=== PATIENT | male | born 2000 | race Caucasian/White ===

== ENCOUNTER 2020-06-26 11:37 | Emergency (ER) | payer SELFPAY ==
[2020-06-26 11:45] VITALS: BP 178/111; PULSE 118; RESP 18; TEMP 37.2; O2SAT 98; BMI 31.6
--- NOTE | 2020-06-26 11:56 | W.ED.PSYCH ---
HPI - Psych General: Chief Complaint: Psychiatric Symptoms Stated Complaint: SI Time Seen by Provider: 06/26/20 11:45 History of Present Illness: HPI Narrative: 20-year-old male presents to the emergency room via EMS he cut himself on the left forearm he is done this multiple times in the past he been in an argument with his mother and was angry was trying to express his anger is yet several scars on the arm he does have a small amount of bleeding is a partial thickness cut it stop bleeding now he denies any intent to actually kill himself he denies any homicidal ideation he does state he frequently gets suicidal ideation but he deals with it by diverting his attention going for a walk using other strategies to calm down or slow his thinking. He states this is a chronic thing and he has had it for years and he has managed it with his diversion techniques. He states he is not having any suicidal ideation now.. He states he has a family history of bipolar disorder. MD complaint: other (Patient cut himself in anger.) Onset (ago): minute(s) Duration: intermittent and resolved prior to arrival Relieving factors: other (Cutting) Context: significant life stressor Associated psychiatric symptoms: depression Associated symptoms: Reports depression; Deny auditory hallucinations, visual hallucinations, delusions, homicidal ideation, suicidal ideation or racing thoughts Treatments prior to arrival: none Review of Systems Const: Denies: fever(s), chills, body aches, change in appetite, fatigue or malaise ENMT: Denies: throat pain, ear or mastoid pain, nasal discharge or nasal congestion Card: Denies: chest pain, edema, dyspnea on exertion or orthopnea Resp: Denies: dyspnea, productive cough or non-productive cough GI: Denies: abdominal pain, nausea, vomiting, hematemesis, coffee ground emesis, diarrhea, constipation, bloating, hematochezia or melena : Denies: flank pain, dysuria, urinary frequency or urinary urgency Skin/Breast: Denies: rash or pruritus Psych: Reports: depression; Denies: visual hallucinations, auditory hallucinations, suicidal ideation or homicidal ideation [facility] PFSH: Medical History (Updated 06/26/20 @ 14:19 by Carlos Hurd DO) No significant past medical history Surgical History (Updated 06/26/20 @ 12:00 by Carlos Hurd DO) No history of previous surgery Physical Exam Const: COMMON NORMALS: no acute distress GENERAL APPEARANCE: cooperative and comfortable ORIENTATION/CONSCIOUSNESS: Yes awake, Yes oriented to person, Yes oriented to place and Yes oriented to time HENMT: COMMON NORMALS: normocephalic, atraumatic and hearing grossly normal bilaterally HEAD & SCALP: normocephalic and atraumatic Neck/C-Spine: COMMON NORMALS: no JVD Resp: COMMON NORMALS: normal respiratory effort, No retractions, No use of accessory muscles and clear to auscultation bilaterally AUSCULTATION: clear to auscultation bilaterally Cardio: COMMON NORMALS: no JVD, regular rate, regular rhythm and No murmurs present (Cardio) RATE: regular rate RHYTHM: regular rhythm GI: COMMON NORMALS: Soft to palpation and No hepatosplenomegaly present AUSCULTATION: Yes normoactive bowel sounds PALPATION: Yes Soft to palpation, No Tenderness to palpation present (GI), No Guarding due to palpation present (GI) and Yes No hepatosplenomegaly present Extremity: NARRATIVE EXTREMITY EXAM: Multiple cuts with significant variation in healing with hypertrophy of scars distally. There is a partial-thickness cut that he is bandaged and does not actively bleeding. Neuro: SENSORIUM/ORIENTATION: Yes oriented to person, Yes oriented to place and Yes oriented to time Psych: THOUGHT CONTENT: No delusions MDM - Psych MDM Narrative: Medical decision making narrative: Labs back. Patient is mildly anemic otherwise he has no significant abnormalities I discussed with Dr. Juárez he will come and see the patient emergency room he did tell 1 of the nurses evidently was trying to harm himself and again to clarify its that he was trying to cut himself to let out express anger but not try to kill himself he does state he frequently has suicidal thoughts but deals with them by distracting himself with other things and work successfully says it about 3 times a week. I talked to Dr. Juárez he is going to come and see the patient evaluating for himself. Lab Data: Labs: Lab Results 06/26/20 06/26/20 06/26/20 Range/Units 11:49 11:49 12:09 WBC 7.8 (4.0-10.0) 10^3/ uL RBC 4.06 L (4.1-5.3) 10^6/u L Hgb 10.9 L (11.7-16.6) g/dL Hct 34.3 L (42.0-52.0) % MCV 84.5 (80-94) fL MCH 26.8 L (28.0-34.0) pg MCHC 31.8 (30.0-36.0) g/dL RDW 12.4 (12.1-15.1) % Plt Count 347 (130-400) 10^3/c mm MPV 9.0 (7.4-10.4) fL Neut % (Auto) 51.5 % Lymph % (Auto) 36.2 % [place] % (Auto) 9.1 % Eos % (Auto) 1.2 % Baso % (Auto) 1.0 % Neut # (Auto) 4.03 (1.8-7.7) 10^3/u L Lymph # (Auto) 2.8 (0.8-4.8) 10^3/u L [place] # (Auto) 0.7 (0.2-0.9) 10^3/u L Eos # (Auto) 0.1 (0.0-0.8) 10^3/u L Baso # (Auto) 0.1 (0.0-0.1) 10^3/u L Nucleated RBC % (a uto) 0 % Nucleated RBCs # 0.0 /100WBC Sodium (136-145) mmol/L Potassium (3.5-5.1) mmol/L Chloride (98-107) mmol/L Carbon Dioxide (22-29) mmol/L Anion Gap (5-19) BUN (6-20) mg/dL Creatinine (0.7-1.2) mg/dL GFR Calculation (90-130) mL/min Glucose (65-115) mg/dL Calculated Osmolal ity (285-295) mOsm/k g Calcium (8.5-10.5) mg/dL Urine Color Yellow (Yellow) Urine Appearance Clear (CLEAR) Urine pH 5 (5-7) Ur Specific Gravit y 1.020 (1.005-1.030) Urine Protein Trace (Negative) Urine Glucose (UA) Norm (Normal) Urine Ketones Negative (Negative) Urine Blood Neg (Negative) Urine Nitrate Negative (Negative) Urine Bilirubin Neg (NEGATIVE) Urine Urobilinogen Neg (Negative) mg/dL Ur Leukocyte Nicky ase Negative (Negative) Urine RBC None (0-2) /hpf Urine WBC None (0-5) /hpf Ur Squamous Epith Cells None (0-5) Amorphous Sediment Not Reportable Urine Bacteria Trace (NONE) Hyaline Casts 0-4 H Urine Mucus 1+ Salicylates (3-10) mg/dL Urine Opiates Scre en Negative (Negative) ng/mL Acetaminophen (10-30) ug/mL Ur Barbiturates Sc reen Negative (Negative) ng/mL Ur Phencyclidine S crn Negative (Negative) ng/mL Ur Amphetamines Sc reen Negative (Negative) ng/mL U Benzodiazepines Scrn Negative (Negative) ng/mL Urine Cocaine Scre en Negative (Negative) ng/mL U Marijuana (THC) Screen Negative (Negative) ng/mL 06/26/20 Range/Units 12:09 WBC (4.0-10.0) 10^3/ uL RBC (4.1-5.3) 10^6/u L Hgb (11.7-16.6) g/dL Hct (42.0-52.0) % MCV (80-94) fL MCH (28.0-34.0) pg MCHC (30.0-36.0) g/dL RDW (12.1-15.1) % Plt Count (130-400) 10^3/c mm MPV (7.4-10.4) fL Neut % (Auto) % Lymph % (Auto) % [place] % (Auto) % Eos % (Auto) % Baso % (Auto) % Neut # (Auto) (1.8-7.7) 10^3/u L Lymph # (Auto) (0.8-4.8) 10^3/u L [place] # (Auto) (0.2-0.9) 10^3/u L Eos # (Auto) (0.0-0.8) 10^3/u L Baso # (Auto) (0.0-0.1) 10^3/u L Nucleated RBC % (a uto) % Nucleated RBCs # /100WBC Sodium 134 L (136-145) mmol/L Potassium 3.9 (3.5-5.1) mmol/L Chloride 102 (98-107) mmol/L Carbon Dioxide 23 (22-29) mmol/L Anion Gap 12.9 (5-19) BUN 14 (6-20) mg/dL Creatinine 1.1 (0.7-1.2) mg/dL GFR Calculation 84.5 L (90-130) mL/min Glucose 130 H (65-115) mg/dL Calculated Osmolal ity 276 L (285-295) mOsm/k g Calcium 9.4 (8.5-10.5) mg/dL Urine Color (Yellow) Urine Appearance (CLEAR) Urine pH (5-7) Ur Specific Gravit y (1.005-1.030) Urine Protein (Negative) Urine Glucose (UA) (Normal) Urine Ketones (Negative) Urine Blood (Negative) Urine Nitrate (Negative) Urine Bilirubin (NEGATIVE) Urine Urobilinogen (Negative) mg/dL Ur Leukocyte Nicky ase (Negative) Urine RBC (0-2) /hpf Urine WBC (0-5) /hpf Ur Squamous Epith Cells (0-5) Amorphous Sediment Urine Bacteria (NONE) Hyaline Casts Urine Mucus Salicylates < 0.3 L (3-10) mg/dL Urine Opiates Scre en (Negative) ng/mL Acetaminophen < 5.0 L (10-30) ug/mL Ur Barbiturates Sc reen (Negative) ng/mL Ur Phencyclidine S crn (Negative) ng/mL Ur Amphetamines Sc reen (Negative) ng/mL U Benzodiazepines Scrn (Negative) ng/mL Urine Cocaine Scre en (Negative) ng/mL U Marijuana (THC) Screen (Negative) ng/mL Discharge Plan Discharge Patient Disposition: Home Clinical Impression: Bipolar disorder, Deliberate self-cutting Condition: Stable Prescriptions: New mupirocin 2 % ointment 1 applic TOPICAL BID Qty: 22 RF: 0 No Action Tylenol 325 mg Tablet 650 - 1,300 mg PO PRN RF: 0 Discharge Orders: Discharge Order (Routine); Ordered 06/26/20 Ordered By: Carlos Hurd Referrals: BE[facility]AVIORAL HEALTH PROVIDERS, [Staff Physician] - Discharge Diet: Usual diet Discharge Activity: Resume usual activity Activity Restrictions/Additional Instructions: Follow-up with behavioral health case management will assist you in making referral. Discharge Date/Time: 06/26/20 14:34 Coding Level of Care Code ED Account Executive [employer] for Chg Fwd Exam Detailed
--- NOTE | 2020-06-26 12:06 | PC.NURSE ---
Physician Vickey cleared patient of needing 1:1 sitter at this time due to assessment/interview
[2020-06-26 12:14] LABS: Basophils # 0.1 10^3/uL (0.0-0.1); Eosinophils # 0.1 10^3/uL (0.0-0.8); Eosinophils % 1.2 %; Hematocrit 34.3 % (42.0-52.0); Hemoglobin 10.9 g/dL (11.7-16.6); Lymphocytes # 2.8 10^3/uL (0.8-4.8); Lymphocytes % 36.2 %; Mean Corpuscular HGB Conc 31.8 g/dL (30.0-36.0); Mean Corpuscular Hemoglobin 26.8 pg (28.0-34.0); Mean Corpuscular Volume 84.5 fL (80-94); Monocytes # 0.7 10^3/uL (0.2-0.9); Monocytes % 9.1 %; Neutrophils # 4.03 10^3/uL (1.8-7.7); Neutrophils % 51.5 %; Nucleated Red Blood Cells % 0 %; Platelet Count 347 10^3/cmm (130-400); Red Blood Count 4.06 10^6/uL (4.1-5.3); Red Cell Distribution Width 12.4 % (12.1-15.1); White Blood Count 7.8 10^3/uL (4.0-10.0)
[2020-06-26 12:44] LABS: Amphetamines Screen Urine Negative (Negative); Barbiturates Screen Urine Negative (Negative); Benzodiazepines Screen Urine Negative (Negative); Cocaine Screen Urine Negative (Negative); Opiate Screen Urine Negative (Negative); PCP Screen Urine Negative (Negative); THC Screen Urine Negative (Negative)
[2020-06-26 12:45] LABS: Anion Gap 12.9 (5-19); Blood Urea Nitrogen 14 mg/dL (6-20); Calcium 9.4 mg/dL (8.5-10.5); Carbon Dioxide 23 mmol/L (22-29); Chloride 102 mmol/L (98-107); Glomerular Filtration Rate 84.5 mL/min (90-130); Glucose 130 mg/dL (65-115); Osmolality Calculated 276 mOsm/kg (285-295); Potassium 3.9 mmol/L (3.5-5.1); Sodium 134 mmol/L (136-145)
[2020-06-26 12:45] LABS: Add Urine Microscopic? YES; Bilirubin Urine Neg (NEGATIVE); Blood Urine Neg (Negative); Glucose Urine UA Norm (Normal); Ketones Urine Negative (Negative); Leukocyte Esterase Urine Negative (Negative); Nitrate Urine Negative (Negative); Protein Urine Trace (Negative); Urine Appearance Clear (CLEAR); Urine Color Yellow (Yellow); Urobilinogen Urine Neg (Negative); pH Urine 5 (5-7)
[2020-06-26 12:50] LABS: Add Urine Culture? No; Bacteria Urine TRACE; Hyaline Casts Urine 0-4; Mucus Urine 1+
[2020-06-26 12:52] LABS: Acetaminophen < 5.0 ug/mL (10-30); Salicylate < 0.3 mg/dL (3-10)
[2020-06-26 13:42] VITALS: RESP 18
--- NOTE | 2020-06-26 13:53 | PC.NURSE ---
Dr Juárez at bedside with patient at 1352
--- NOTE | 2020-06-26 14:42 | DCPLANNER ---
it operations manager was asked to speak with patient about services at [facility]. it operations manager called [facility] to confirm if patient was a patient at the clinic. it operations manager was told that patient has not been seen at the clinic, will have to fill out new patient paperwork, turn in it, then patient would be called with an appointment for the initial assessment, and that would be completed over the phone. it operations manager spoke with patient, he stated that he would take the paper work fill it out and turn it in. it operations manager offered to help patient fill out the initial paperwork and turn it in for him. Patient stated that he would fill it out and turn it in.
--- NOTE | 2020-06-26 15:07 | P.CONIM_ITS ---
Providers/Reason for Consult Consulting Physican/Specialty*: Franck Juárez M.D./Psychiatry Reason for Consult*: Self cutting. Requesting Physcian: Carlos Hurd Psych Consult HPI History of Present Illness Yogesh Reynolds is a 20 year old male who has a protracted history of dealing with anger by cutting, which is a well-known method of coping among young people. He is fairly well read and says that he understands that dopamine and endorphin release follows cutting. He says he has no suicidal or homicidal ideation, plan or intent. He has no history of suicide gesture or attempt. He occasionally thinks about suicide, as young people often do. He has trouble coping with conflict and when he gets angry he wants to cut. He has been doing it for years. I told him that does not mean is okay and he should get involved with meaningful therapy. He said he did not have any money or a job and I pointed out that [facility] has a budget for such people as well as walk-in intake hours 5 days a week. He said he would be interested in that. Review of Systems Narrative: Const: Denies: fever(s), chills or body aches Eyes: Denies: change in vision or blurry vision ENMT: Denies: throat pain, enlarged tonsils, odynophagia, hoarseness, mouth pain or swelling of lips/tongue Card: Denies: palpitations, irregular heart rhythm, edema or swelling of feet/ankles Resp: Denies: dyspnea, productive cough or non-productive cough GI: Denies: abdominal pain, nausea or vomiting : Denies: flank pain, difficulty voiding, dysuria, urinary frequency, urinary urgency or urinary hesitancy Musc: Denies: neck pain, back pain or extremity swelling Skin/Breast: Denies: rash, pruritus or erythema Neuro: Denies: headache(s), numbness in extremities or weakness in extremities Psych: Reports: anxiety and depression Endo: Denies: polyuria, polydipsia or tired all the time PFSH NPU PFSH: Medical History (Updated 07/04/20 @ 00:00 by ) No significant past medical history Surgical History (Updated 06/26/20 @ 12:00 by Carlos Hurd DO) No history of previous surgery Mental Status Exam MSE Comments: This is a 20-year-old male who presents had a stated age clean, neat and well organized. Mood is calm and affect is appropriate. Thought processes are integrated and free of any racing, blocking or looseness of association. There is no evidence of psychosis, such as but not limited to hallucinations, delusions or ideas of reference. Cognitive functions are quite intact. He is well read. The patient affirmatively denied homicidal or suicidal ideation, plan or intent. I told him we are relying upon his truthfulness and he affirms that he is not lying. Insight and judgment are quite adequate. Vitals/I&O/Wt Last Vital Signs Temp 98.9 F 06/26/20 11:45 Pulse 118 H 06/26/20 11:45 Resp 18 06/26/20 13:42 BP 178/111 06/26/20 11:45 Pulse Ox 98 06/26/20 11:45 Weight last 48 hrs Weight 240 lb Physical Exam Narrative: EXAM NARRATIVE: Const: COMMON NORMALS: no acute distress, patient oriented x3, no limitations, healthy appearing and well nourished GENERAL APPEARANCE: cooperative and well developed HENMT: COMMON NORMALS: normocephalic, atraumatic, external ears normal, EAC's normal and Normal external nose present HEAD & SCALP: normal to inspection, normocephalic and atraumatic FACE & SINUS: normal facial exam and face symmetric NOSE: Normal external nose present and Normal nares present EXTERNAL EAR: Yes external ears normal EXTERNAL AUDITORY CANAL: EAC's normal MOUTH: Normal oral and palatal mucosa present, lip normal and tongue normal Eye: COMMON NORMALS: Equal, round and reactive pupils present and conjunctivae normal GENERAL EYE: appearance normal, both eyes and all related structures ALIGNMENT: Yes alignment normal PERIORBITAL: periorbital findings normal EYELID: eyelids normal CONJUNCTIVA: Yes conjunctivae normal SCLERA: sclerae normal PUPIL: Yes Equal, round and reactive pupils present Neck/C-Spine: COMMON NORMALS: full ROM, no lymphadenopathy, supple, no meningeal signs and no JVD GENERAL: Yes normal visual inspection and Yes trachea midline Chest: COMMONS NORMALS: normal inspection of the chest and normal palpation of entire chest wall Resp: COMMON NORMALS: normal respiratory effort, No retractions and No use of accessory muscles EFFORT & INSPECTION: Yes able to speak in complete sentences and Yes symmetric chest movement AUSCULTATION: no crackles, no rales, no rhonchi and no wheezes Cardio: COMMON NORMALS: no JVD, regular rate, regular rhythm, S1 normal heart sound present and S2 normal heart sound present RATE: regular rate RHYTHM: regular rhythm HEART SOUNDS: S1 normal heart sound present, S2 normal heart sound present, no click, no gallops, no murmurs, no rubs and abnormal split S2 GI: COMMON NORMALS: Soft to palpation and No hepatosplenomegaly present PALPATION: Yes Soft to palpation, No Tenderness to palpation present (GI), No Guarding due to palpation present (GI), No Rigid due to palpation, Yes No hepat osplenomegaly present, No Hernia present, No Palpable mass present and No Pulsatile mass present : COMMON NORMALS: Yes no CVA tenderness BLADDER/KIDNEY EXAM: Yes no CVA tenderness EXTERNAL FEMALE EXAM: No Hernia present Back/Pelvis: COMMON NORMALS: no CVA tenderness, thoracic and lumbar spine normal to inspection, no thoracic nor lumbar tenderness and thoraco-lumbar ROM normal Extremity: COMMON NORMALS: normal to inspection, full ROM, capillary refill normal, no joint enlargement, no clubbing, cyanosis or edema and no calf tenderness Neuro: COMMON NORMALS: patient oriented x3, CN's II-XII intact bilaterally, moves all extremities, no focal motor deficits and no sensory deficits noted MENINGEAL SIGNS: Yes no meningeal signs SPEECH: speech normal Psych: See mental status. Skin: COMMON NORMALS: no rashes or lesions noted, turgor normal, no jaundice, no petechiae and no mottling. Shallow left forearm cut has been dressed. A&P Assessment and plan (1) Deliberate self-cutting: This patient is not endangered at the moment. He has no suicidal or homicidal ideation plan or intent unless he has misled me deliberately, which I doubt. He does need therapy, however, and could gain access to it through behavioral health care. Status: Inactive (2) No significant past medical history: Status: Acute (3) Bipolar disorder: He has this diagnosis by history. I cannot make out a solid foundation for it from his history or clinical presentation. Status: Inactive Attestations NPU Medical Necessity Statement*: The patient may be discharged to outpatient care. Time Spent in Patient Care: Greater than 35 minutes (>than 50% of time spent in counselling and/or direct pt care on unit) . 60 minutes Coding Level of Care Code Acute Snapper On for Chg Fwd Diagnoses Deliberate self-cutting Z72.89 No significant past medical history Bipolar disorder F31.9
== END 2020-06-26 14:34 | disposition home or self-care (01) ==
PROVIDERS: Nurse Practitioner Family; Emergency Provider Family Medicine
DX: F31.9 Bipolar disorder, unspecified (principal); Z91.5 Personal history of self-harm
CPT/HCPCS: 12345; 36415; 80048; 80306; 80307; 81001; 85025; 99284

== ENCOUNTER → 2024-09-22 09:46 | Outpatient (BNVA) | payer BC, MEDICAID, SELFPAY | DX: S62.636A Displaced fracture of distal phalanx of right little finger, initial encounter for closed fracture (principal); M79.644 Pain in right finger(s); X58.XXXA Exposure to other specified factors, initial encounter | CPT/HCPCS: 73130 ==

== ENCOUNTER → 2024-09-29 09:22 | Outpatient (BNVA) | payer BC, MEDICAID, SELFPAY | PROVIDERS: Visit Provider Nurse Practitioner | DX: S62.336A Displaced fracture of neck of fifth metacarpal bone, right hand, initial encounter for closed fracture; W22.09XA Striking against other stationary object, initial encounter | CPT/HCPCS: 73130 ==

== ENCOUNTER 2024-09-29 11:06 | Outpatient (CLI) | payer BC, MEDICAID, SELFPAY | END 2024-09-29 11:07 | disposition home or self-care (01) | LOC: SPT 11:07 | PROVIDERS: Visit Provider Nurse Practitioner | DX: Z46.89 Encounter for fitting and adjustment of other specified devices (principal); S62.91XD Unspecified fracture of right hand, subsequent encounter for fracture with routine healing; X58.XXXD Exposure to other specified factors, subsequent encounter | CPT/HCPCS: L3918 ==

== ENCOUNTER → 2024-10-20 10:01 | Outpatient (BNVA) | payer BC, MEDICAID, SELFPAY | PROVIDERS: Visit Provider Nurse Practitioner | DX: S62.336A Displaced fracture of neck of fifth metacarpal bone, right hand, initial encounter for closed fracture (principal); X58.XXXA Exposure to other specified factors, initial encounter | CPT/HCPCS: 73130 ==

== ENCOUNTER 2025-07-10 00:08 | Emergency (ER) | payer OTHER, SELFPAY ==
--- OUTSIDE RECORDS SUMMARY | 2019-09-25 11:45 | XMS_ITS | Continuity of Care Document ---
Author Organization [facility] Address [id number] [address] Phone Care Team Providers Care Laborer [employer] Name Role Phone Michael TAVAREZ, Vidya Unavailable Unavailable Allergies, Adverse Reactions, Alerts Substance Reaction Status Criticality Sulfa (Sulfonamide Antibiotics) HivesHives Active No Information Medications Medication Instructions Dosage Effective Dates (start - stop) Status Comments amoxicillin 500 mg capsule take 1 capsule by oral route every 8 hours for dental infection 500 MG - Active Procedures Procedure Date Limited Oral Evaluation Problem Focused EDR Approval Note Advance Directives Directive Yes / No Effective Date File Name No Information Encounters Encounter Description Practice Location Reason(s) For Visit Diagnoses Date Provider Providers Copied on Encounter [facility], [id number], [id number], [place] tel:[phone] Encounter for dental exam and cleaning w/o abnormal findings Michael Dasilva. [address] [place], [address], [place]. tel:[phone] Referring Provider: Vidya Rodriguez, [address] [place], [address]. tel:[phone] Family History Family Member Type Diagnosis Age At Onset No Information Payers Payer name Insurance type Covered republican ID Authoriza tion(s) No Information Social History Type Description Quantity Date Captured Comments Alcohol Use Details Caffeine Use Details Unknown Tobacco Use Status Light cigarette smok er (1-9 cigs/day) Smoking Status Light tobacco smoker Smoking Tobacco Use Details Cigarette: No Details Available Cigarette: 2 Cigarettes per day Sex Male Chief Complaint And Reason For Visit No Information Reason For Referral Reason For Referral No Information History Of Present Illness Encounter Date Complaint History Of Prese nt Illness No Information Functional Status Date Functional Assessmen t No Information Instructions Date Instruction Additional Infor mation No Information Assessments Type Assessment Date No Information Patient Care Teams Name Effective Dates (start - stop) Status Members No Information
[2025-07-10 00:11] VITALS: BP 157/97; PULSE 86; RESP 18; TEMP 36.8; O2SAT 100; BMI 32.5
[2025-07-10 00:48] VITALS: BP 148/111; PULSE 73; RESP 16; O2SAT 100
--- NOTE | 2025-07-10 01:20 | CTR_ITS ---
PROCEDURE INFORMATION: Exam: CT Chest With Contrast; Diagnostic Exam date and time: 07/10/2025 1:34 AM Age: 25 years old Clinical indication: Abdominal pain; Other: Mib back pain; Epigastric with mid back pain; Additional info: Spine pain at t-l junction TECHNIQUE: Imaging protocol: Diagnostic computed tomography of the chest with contrast. Radiation optimization: All CT scans at this facility use at least one of these dose optimization techniques: automated exposure control; mA and/or kV adjustment per patient size (includes targeted exams where dose is matched to clinical indication); or iterative reconstruction. Contrast material: OMNI 350; Contrast volume: 100 ml; Contrast route: INTRAVENOUS (IV); COMPARISON: CR XR shoulder RT min 2V* [id number] 07/01/2025 2:12 PM RADIATION DOSE METRICS: Total DLP (mGy-cm): 1371.91 FINDINGS: Lungs: Unremarkable. No consolidation. No masses. Pleural spaces: Unremarkable. No pneumothorax. No pleural effusion. Heart: Unremarkable. No cardiomegaly. No pericardial effusion. Lymph nodes: Unremarkable. No enlarged lymph nodes. Vasculature: Unremarkable. No aortic aneurysm. Bones/joints: No definite acute fracture or hemorrhage. Soft tissues: Query mild gynecomastia. PROCEDURE INFORMATION: Exam: CT Abdomen And Pelvis With Contrast Exam date and time: 07/10/2025 1:34 AM Age: 25 years old Clinical indication: Abdominal pain; Other: Mib back pain; Epigastric with mid back pain; Additional info: Spine pain at t-l junction TECHNIQUE: Imaging protocol: Computed tomography of the abdomen and pelvis with contrast. Radiation optimization: All CT scans at this facility use at least one of these dose optimization techniques: automated exposure control; mA and/or kV adjustment per patient size (includes targeted exams where dose is matched to clinical indication); or iterative reconstruction. Contrast material: OMNI 350; Contrast volume: 100 ml; Contrast route: INTRAVENOUS (IV); COMPARISON: No relevant prior studies available. RADIATION DOSE METRICS: Total DLP (mGy-cm): 1371.91 FINDINGS: Liver: Normal. No mass. Gallbladder and biliary ducts: Normal. No calcified stones. No ductal dilation. Pancreas: Normal. No ductal dilation. Spleen: Small splenule. Adrenal glands: Normal. No mass. Kidneys and ureters: Nonobstructing right renal calculus. No acute obstructive uropathy. Stomach and bowel: Unremarkable. No obstruction. No mucosal thickening. Appendix: No evidence of appendicitis. Intraperitoneal space: Unremarkable. No free air. No significant fluid collection. Vasculature: Unremarkable. No abdominal aortic aneurysm. Lymph nodes: Unremarkable. No enlarged lymph nodes. Urinary bladder: Unremarkable as visualized. Reproductive: Unremarkable as visualized. Bones/joints: Unremarkable. No acute fracture. Soft tissues: Unremarkable. CT/CT chest abdpel w/*[id number] IMPRESSION: No definite acute fracture or hemorrhage. No acute infiltrate or effusion. IMPRESSION: Nonobstructing right renal calculus. No acute obstructive uropathy.
[2025-07-10] MEDS: iohexol 350 mg/mL 500 mL Btl (per mL) IV (01:35)
[2025-07-10] MEDS: oxyCODONE-APAP 5-325 mg Tablet 1 TAB PO (02:04)
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
[2025-07-10 02:18] VITALS: BP 137/112; PULSE 72; O2SAT 99
[2025-07-10 03:08] VITALS: BP 129/81; PULSE 75; O2SAT 98
== END 2025-07-10 03:18 | disposition home or self-care (01) ==
PROVIDERS: Emergency Provider Student in an Organized Health Care Education/Training Program
DX: S29.012A Strain of muscle and tendon of back wall of thorax, initial encounter (principal); X58.XXXA Exposure to other specified factors, initial encounter
CPT/HCPCS: 71260; 74177; 99285; J9999